=== PATIENT | male | born 1990 | race Hispanic/Latino ===

== ENCOUNTER 2018-02-02 21:04 | Emergency (ER) | payer SELFPAY ==
[~2018-02-02] VITALS: Ht 188 cm; Wt 172.4 kg
[2018-02-02] MEDS ORDERED: ONDANSETRON HCL INJ 2 MG/ML VIAL IV NR (21:51)
[2018-02-02] MEDS ORDERED: METHYLPREDNISOLONE SOD SUCC 125 MG/2ML VIAL IV ONE (22:00)
[2018-02-02] MEDS ORDERED: DIAZEPAM INJ 5 MG/ML 2 ML IV ONE (22:00)
[2018-02-02] MEDS: MORPHINE SULFATE INJ 4 MG/ML INJ IV PRN ×2 (22:25→22:35)
[2018-02-02] MEDS ORDERED: DIAZEPAM 5 MG TAB ONE (22:34)
[2018-02-02] MEDS ORDERED: DIAZEPAM 5 MG TAB PO SCH (22:45)
[2018-02-02] MEDS ORDERED: DIAZEPAM 5 MG TAB PO ONE (22:45)
[2018-02-02 23:04] LABS: BASOPHILS # (AUTO) 0.1 (0.0-0.1); BASOPHILS % 0.5 % (0.0-1.0); EOSINOPHILS # (AUTO) 0.1 (0.0-0.4); HEMATOCRIT 41.3 % (38.2-49.6); HEMOGLOBIN 14.5 g/dL (14.0-18.0); LYMPHOCYTES # (AUTO) 2.4 (1.0-3.2); LYMPHOCYTES % 25.6 % (18.0-39.1); MEAN CORPUSCULAR HEMOGLOBIN 30.1 pg (28-32); MEAN CORPUSCULAR HGB CONC 35.1 g/dL (31-35); MEAN CORPUSCULAR VOLUME 85.9 fL (81-99); MONOCYTES # (AUTO) 0.7 (0.2-0.8); MONOCYTES % 7.8 % (4.4-11.3); NEUTROPHILS % 64.5 % (38.7-80.0); PLATELET COUNT 199 x10e3/uL (140-360); RED BLOOD COUNT 4.81 x10e6/uL (4.3-5.7); RED CELL DISTRIBUTION WIDTH 12.8 % (11.7-14.4)
[2018-02-02 23:15] LABS: ALANINE AMINOTRANSFERASE 45 IU/L (0-55); ALBUMIN/GLOBULIN RATIO 1.4 (0.8-2.0); ALKALINE PHOSPHATASE 91 IU/L (40-150); ANION GAP 15.7 mmol/L (8-16); BLOOD UREA NITROGEN 16 mg/dL (7-26); BUN/CREATININE RATIO 16 (6-25); CALCIUM 8.5 mg/dL (8.4-10.2); CARBON DIOXIDE 25 mmol/L (22-29); CHLORIDE 102 mmol/L (98-107); CREATININE, SERUM 0.99 mg/dL (0.72-1.25); EST GLOMERULAR FILTRATION RATE > 60 ML/MIN (60-); GLUCOSE 100 mg/dL (74-118); POTASSIUM 3.7 mmol/L (3.5-5.1); SODIUM 139 mmol/L (136-145)
--- NOTE | 2018-02-03 00:12 | Diagnostic Imaging Report ---
History: Low back pain Comparison studies: None Technique: Axial images were obtained from T11 through the sacrum. Coronal and sagittal images reconstructed from the axial data. Intravenous contrast: None Dose modulation, iterative reconstruction, and/or weight based adjustment of the mA/kV was utilized to reduce the radiation dose to as low as reasonably achievable. Findings: Number of non-rib bearing vertebral bodies: 5. Short pedicles constitutionally narrowed spinal canal Alignment: Normal lordosis. No scoliosis. Soft tissues: No abnormalities. Paraspinal muscles: Unremarkable. Vertebrae: No fractures, infection or neoplasm. Degenerative changes: L1-L2: No abnormalities. L2-L3: Mild diffuse disc bulge and mild facet hypertrophy results in mild canal stenosis and mild bilateral foraminal narrowing L3-L4: Diffuse disc bulge and mild facet hypertrophy results in moderate canal stenosis and moderate bilateral foraminal narrowing L4-L5: Diffuse disc bulge and facet hypertrophy results in moderate canal stenosis and moderate bilateral foraminal narrowing L5-S1: Diffuse disc bulge results in mild canal stenosis and moderate bilateral foraminal narrowing Sacroiliac joints: No degenerative changes. IMPRESSION: 1. No acute spinal abnormality. 2. Moderate canal stenosis from L3 through L5, secondary to diffuse disc bulge, mild posterior element hypertrophy and constitutionally narrowed canal. Moderate bilateral foraminal narrowing L3-S1. Signed by: DR Dheeraj Briggs M.D. on 02/03/2018 12:07 AM
[2018-02-03] MEDS ORDERED: ULTRAM50 MG PO (00:22)
[2018-02-03] MEDS ORDERED: ROBAXIN-750750 MG PO (00:25)
[2018-02-03 00:41] LABS: BILIRUBIN,URINE NEGATIVE (NEGATIVE); CLARITY,URINE CLEAR (CLEAR); COLOR,URINE YELLOW (YELLOW); KETONES,URINE NEGATIVE (NEGATIVE); LEUKOCYTE ESTERASE ,URINE NEGATIVE (NEGATIVE); NITRITE,URINE NEGATIVE (NEGATIVE); PROTEIN,URINE DIPSTICK 2+ (NEGATIVE); URINE UROBILINOGEN 0.2 mg/dL (0.2 - 1)
[2018-02-03 00:50] LABS: EPITHELIAL CELLS,URINE RARE /LPF; RBC,URINE 0-5 /HPF (0-5); WBC,URINE (MAN) 0-5 /HPF (0-5)
[2018-02-03 01:12] VITALS: BP 148/96
== END 2018-02-03 01:16 | disposition home or self-care (01) ==
LOC: ER 21:04
DX: M54.5 Low back pain (principal)
CPT/HCPCS: 36415; 72131; 80053; 81001; 85025; 99284; J2270; J2405; J2930; J3360